=== PATIENT | female | born 2005 | race Two or more races ===

== ENCOUNTER 2023-03-09 17:19 | Emergency (ER) | payer OTHER ==
[~2023-03-09] VITALS: Ht 165.1 cm; Wt 68.0 kg
== END 2023-03-09 20:45 | disposition home or self-care (01) ==
LOC: EMR PED 17:19
DX: R59.0 Localized enlarged lymph nodes (principal); R50.9 Fever, unspecified; Z20.822 Contact with and (suspected) exposure to COVID-19